=== PATIENT | female | born 1995 | race Caucasian/White ===

== ENCOUNTER 2016-06-26 17:43 | Outpatient (CLI) | payer OTHER ==
[2016-06-26 19:30] VITALS: BMI 31.6
[2016-06-26 20:02] LABS: PH,URINE 6.5 (5.0-8.0); URINE BILIRUBIN NEGATIVE (NEGATIVE); URINE BLOOD NEGATIVE (NEGATIVE); URINE GLUCOSE (UA) NEGATIVE (NEGATIVE); URINE LEUKOCYTE ESTERASE 1+ (NEGATIVE); URINE NITRITE NEGATIVE (NEGATIVE); URINE PROTEIN NEGATIVE (NEGATIVE); URINE UROBILINOGEN NORMAL (0-1 mg/dl)
[2016-06-26 20:13] LABS: URINE APPEARANCE TURBID; URINE BACTERIA 3+; URINE COLOR LIGHT YELLOW; URINE EPITHELIAL CELLS 20-30 /hpf; URINE RBC 0-2 /hpf
[2016-06-26] MEDS ORDERED: CEPHALEXIN 500 MG CAPSULE ONE (20:25)
[2016-06-26] MEDS ORDERED: CEPHALEXIN 500 MG CAPSULE PO ONE (20:25)
== END 2016-06-26 20:35 | disposition home or self-care (01) ==
LOC: FBCOUT 17:43 → FBC 17:48 → FBCOUT 20:35
PROVIDERS: ATTEND Family Medicine
DX: O26.899 Other specified pregnancy related conditions, unspecified trimester (principal); R30.0 Dysuria; Z3A.00 Weeks of gestation of pregnancy not specified

== ENCOUNTER 2016-07-01 07:35 | Inpatient (IN) | payer OTHER ==
[2016-07-01 08:03] VITALS: BMI 35.0
[2016-07-01] MEDS ORDERED: OXYTOCIN IN NS 334 ML IV PRN (09:54)
--- NOTE | 2016-07-01 10:14 | PDOC36 ---
Provider Note Subject: cc: Admission H&P HPI: 20 y.o. year old CHARLES 07/16/2016, by Last Menstrual Period at 37w6d. Presents with SROM at 0510 this am. Intermittent ctx. REVIEW OF SYSTEMS GENERAL: No fever or headache EYES: No double or blurry vision. CARDIOVASCULAR: No chest pain. RESPIRATORY: No severe shortness of breath or cough. GASTROINTESTINAL: No nausea or vomiting or right upper quadrant pain. PSYCHIATRIC: No anxiety or depression. PROBLEMS Patient Active Problem List Diagnosis Date Noted Flat nipple 06/08/2016 Anxiety 04/24/2016 Encounter for supervision of normal in third trimester 03/23/2016 Abnormal findings on screening 02/01/2016 Iron deficiency anemia during , antepartum 12/31/2014 [facility] 11/06/2014 Partner relationship problems 11/06/2014 OB HISTORY #: 1, Date: 12/27/14, Sex: Female, Weight: 3.232 kg (7 lb 2 oz), GA: 38w3d, Delivery: Vaginal, Spontaneous Delivery, Apgar1: None, Apgar5: None, Living: Yes , Comments: None #: 2, Current Dating: Dating Summary Working CHARLES: 07/16/16 set by Selina Ge on 01/29/16 based on Last Menstrual Period on 10/10/15 Based On CHARLES GA Dif Comments GA Cyc Lut BC Entered By Date Last Menstrual Period on 10/10/15 (Exact Date) 07/16/16 Working Selina Ge 01/29/16 Ultrasound on 02/27/16 07/11/16 +5d Male. Ant grade 1 placenta, no previa. Normal survey except B pelviectasis. Referred to [facility]. 20w5d Hollie Lopez MD 03/03/16 PS No past surgical history SOC HX reports that she has never smoked. She quit smokeless tobacco use about 2 years ago. She reports that she does not drink alcohol or use illicit drugs. ALL No Known Allergies MEDICATIONS Current outpatient prescriptions: doxylamine (UNISOM) 25 MG tablet, Take 1 tablet (25 mg total) by mouth nightly as needed for nausea., Disp: 60 tablet, Rfl: 1 ferrous gluconate (FERGON) 324 MG tablet, Take 1 tablet (324 mg total) by mouth daily with breakfast., Disp: 90 tablet, Rfl: 3 iron sucrose (VENOFER) 20 MG/ML injection, 200mg IV x 5 doses within 14 days Disp# 200mg RF x 4, Disp: , Rfl: Vit-Fe Fumarate-FA (PREPLUS) 27-1 MG tablet, Take 1 tablet by mouth daily., Disp: , Rfl: PHYSICAL EXAMINATION VITAL SIGNS: T 98.2 BP 126/76 P 100 Estimated body mass index is 33.74 kg/(m^2) as calculated from the following: Height as of 06/08/16: 1.625 m (5' 3.98"). Weight as of 06/08/16: 89.1 kg (196 lb 6.9 oz). Total weight gain is 11.989 kg (26 lb 6.9 oz) FHT: 130's baseline, mod mahin, + accels, no decels Kline: Intermittent SVE: /-2 GENERAL: No distress GASTROINTESTINAL: Gravid no fundal tenderness, vertex on leopolds LABS & STUDIES A+ Antibody- Rubella Immune Hep B- HIV- GC/Chlamydia- Trep- Hgb 9.7 GBS unknown Confirmed ROM with ROM+, ferning and persistent pooling and leaking of fluid. ASSESSMENT 20 y.o. year old CHARLES 07/16/2016, by Last Menstrual Period at 37w6d who presents with SROM. PLAN PROM- Not in active ctx pattern. Will observe for short while but start pitocin if not progressing into active labor. Anticpate . GBS- unknown. She has not been seen in clinic since 06/08. Will treat as unknown at this time. If ROM >18 hours start prophylaxis. FWB- cat I RH + Pain- plans on epidural when active.
[2016-07-01] MEDS ORDERED: IV START KIT ONE (10:55)
[2016-07-01] MEDS ORDERED: OXYTOCIN 10 UNITS/ML VIAL ONE (10:55)
[2016-07-01] MEDS ORDERED: LIDOCAINE 1% (PRES FREE) 30 ML VIAL ONE (10:56)
[2016-07-01] MEDS ORDERED: OXYTOCIN IN NS 500 ML IV ONE (10:56)
[2016-07-01] MEDS ORDERED: LIDOCAINE Viscous 2% 15 ML UDCUP ONE (10:56)
[2016-07-01] MEDS ORDERED: MINERAL OIL 25 ML BOT ONE (10:56)
[2016-07-01] MEDS ORDERED: PUMP TUBING ONE (10:56)
[2016-07-01] MEDS ORDERED: SODIUM CHLORIDE 0.9% FLUSH 10 ML ONE (10:56)
[2016-07-01 12:06] LABS: HEMATOCRIT 29.2 % (37.0-47.0); HEMOGLOBIN 9.1 gm/l (12.0-16.0); MEAN CELL VOLUME 80.2 fl (81.0-99.0); MEAN CORPUSCULAR HGB CONC 31.2 g/dl (33.0-37.0); RED CELL DISTRIBUTION WIDTH 18.6 % (11.5-14.5)
[2016-07-01] MEDS: LACTATED RINGERS 1,000 ML IV SCH ×4 (12:32→22:43)
[2016-07-01] MEDS: OXYTOCIN IN NS 500 ML IV PRN ×4 (12:39→16:22)
[2016-07-01] MEDS ORDERED: FENTANYL/ROPIVACAINE EPIDURAL 250 ML EP ONE (18:37)
[2016-07-01] MEDS ORDERED: EPIDURAL PUMP SET ONE (18:37)
[2016-07-01] MEDS ORDERED: NALOXONE HCL 0.4 MG/ML VIAL IV PRN (18:59)
[2016-07-01] MEDS ORDERED: EPHEDRINE SULFATE 50 MG/ML 1ML VIAL IV PRN (18:59)
[2016-07-01] MEDS ORDERED: LACTATED RINGERS 500 ML IV PRN (18:59)
[2016-07-01] MEDS ORDERED: METOCLOPRAMIDE HCL 5 MG/ML 2ML VIAL IV PRN (18:59)
[2016-07-01] MEDS ORDERED: ONDANSETRON 4 MG/2ML 2 ML VIAL IV PRN (18:59)
[2016-07-01] MEDS ORDERED: SODIUM CHLORIDE 0.9% 500 ML IV PRN (18:59)
[2016-07-01] MEDS ORDERED: NALBUPHINE HCL 20 MG/ML AMP IV PRN (18:59)
[2016-07-01] MEDS ORDERED: DIPHENHYDRAMINE HCL 50 MG/1 ML VIAL IV PRN (18:59)
--- NOTE | 2016-07-01 19:12 | PDOC36 ---
Provider Note Subject: S: feeling much pain improvement after epidural O: T 98.4 BP 113/62 P 90 CE: 4/60/-2 Ctx: q2-3 min Pit 6 FHT"s 125 baseline, mod mahin, + accels- cat I A/P PROM- Recently reached active phase I believe. Pit at 6 and continue to observe for consistent ctx pattern. Anticpate . GBS- unknown. She has not been seen in clinic since 06/08. Will treat as unknown at this time. If ROM >18 hours start prophylaxis. If she has not delievered by 11pm will initiate at that time. Reduce CE as much as possible. FWB- cat I RH + Pain- epidural in place
[2016-07-01] MEDS ORDERED: ROPIVACAINE 0.5% 30 ML VIAL ONE (19:15)
[2016-07-01] MEDS ORDERED: EPIDURAL PROCEDURE TRAY ONE (19:15)
[2016-07-01] MEDS: FENTANYL/ROPIVACAINE EPIDURAL 250 ML EP SCH (20:47)
[2016-07-01] MEDS ORDERED: PENICILLIN G POTASSIUM 5 MMU in NS 0.9% (MINI-BAG PLUS) 100 ML IV ONE (22:12)
--- NOTE | 2016-07-01 22:12 | PDOC36 ---
Provider Note Subject: S: Pain well controlled. O: T 97.8 BP 107/64 P 90 CE: 6/80/-1 Ctx: q2-3 min Pit 6 FHT"s 120 baseline, mod mahin, + accels- cat I A/P PROM- Making good progress. Pit at 6 and continue to observe for consistent ctx pattern. Anticpate . GBS- unknown. Now at border of 18 hours. Will start PCN prophylaxis in unknown setting. Forebag ruptured just now. FWB- cat I RH + Pain- epidural in place
[2016-07-01] MEDS ORDERED: LACTATED RINGERS 1,000 ML IV SCH (22:15)
[2016-07-01] MEDS ORDERED: NS 0.9% (MINI-BAG PLUS) 100 ML IV ONE (22:39)
[2016-07-01] MEDS ORDERED: PENICILLIN G POTASSIUM 5 MMU VIAL ONE (22:39)
[2016-07-02] MEDS ORDERED: MAGNESIUM HYDROXIDE 30 ML UDCUP PO PRN (00:42)
[2016-07-02] MEDS ORDERED: BENZOCAINE/MENTHOL 60 APPLIC/BOT TP PRN (00:42)
[2016-07-02] MEDS ORDERED: LANOLIN 50 APPLIC/7G TUBE TP PRN (00:42)
[2016-07-02] MEDS ORDERED: DOCUSATE SODIUM 100 MG CAPSULE PO PRN (00:42)
[2016-07-02] MEDS ORDERED: HYDROCODONE/ACETAMINOPHEN 5/325MG TABLET PO PRN (00:42)
--- NOTE | 2016-07-02 00:45 | PCMDEL ---
Delivery Note - Labor 1st stage (hr/min):: 6 hours 2nd stage (hr/min):: 14 min 3rd stage (hr/min):: 5 min Total (hr/min):: 6 hours Pushed (hr/min):: 14 min - Delivery Delivery (Date): 07/02/16 Delivery (Time): 00:26 Infant Gender: Male Presentation: Cephalic Position: OA Umbilical Cord: 3 Vessel Delayed Cord Clamping:: 2-3 min 1 Minute Total: 9 5 Minute Total: 10 Placenta:: intact EBL:: 500 Comments:: Presented to [facility] with SROM and PROM. Patient observed till 8 hours post SROM. Pitocin augmentation started and progressed to complete. PCN initiated after 18 hours of ROM. Patient pushed effectively to deliver via without any complications. Vigorous infant. FM remained category 1 throughout. Delayed cord clamping x 2 min. Active thrid stage management with pit and fundal massage.
[2016-07-02] MEDS: IBUPROFEN 800 MG TABLET PO PRN ×3 (01:20→21:23)
[2016-07-02] MEDS ORDERED: PENICILLIN G 3 MIL UNIT PREMIX 3 MMU in Premix (D5W) 50 ml 1 EACH IV SCH (02:00)
[2016-07-02] MEDS: LACTATED RINGERS 1,000 ML IV SCH (03:50)
[2016-07-02] MEDS: FENTANYL/ROPIVACAINE EPIDURAL 250 ML EP SCH (06:12)
[2016-07-03 06:29] LABS: HEMATOCRIT 30.7 % (37.0-47.0); HEMOGLOBIN 9.3 gm/l (12.0-16.0)
[2016-07-03] MEDS: IBUPROFEN 800 MG TABLET PO PRN (08:17)
[2016-07-03 08:32] VITALS: BP 114/68
--- NOTE | 2016-07-03 09:41 | PDOC39B ---
Hospital Course: ADMIT DATE: 07/01/16 DISCHARGE DATE: 07/03/16 ADMISSION DIAGNOSES: PROM IUP at 37 6 7/ weeks GBS unknown PROCEDURES: HISTORY OF PRESENT ILLNESS: 20 year old G2 T1 L1 at 38 weeks 0 days presenting with PROM. HOSPITAL COURSE: The patient was observed for short duration and then started on pitocin augmentation. She progressed slowly and eventually was started on PCN for GBS unknown status. She delivered via without complications. her post course was unremarkable. By day of discharge the patient is ambulating, eating, voiding, and passing flatus without difficulty. Pain is controlled and lochia is appropriate. She is breast feeding and pumping with assistance. - Physical Exam Vital Signs: Temp Pulse Resp BP Pulse Ox 98.2 F 113 18 114/68 07/03/16 08:00 07/03/16 08:00 07/03/16 08:00 07/03/16 08:00 General: Afebrile, No Acute Distress Neurological: Alert, Oriented x 4 Lungs: Clear to Auscultation Bilaterally Cardiovascular: Regular Rate and Rhythm Fundus: Firm, Midline Extremities: Full ROM, No Edema Skin: Normal Color, Warm, Dry, Intact, No Rash - Discharge Diagnosis (1) Normal vaginal delivery Status: AcuteAssessment/Plan: Healthy exam. Routine PP care. Doing well. Well supported by with game plan. - Discharge Plan Condition: Good Disposition: Home Prescriptions: Docusate Sodium [COLACE 100 MG CAPSULE (SHF)] 100 mg PO DAILY PRN #30 PRN Reason: Comfort Ibuprofen [IBUPROFEN 800 MG TABLET (SHF)] 800 mg PO Q6H PRN #60 PRN Reason: Pain (Mild) Lanolin [LANOLIN 7 G TUBE (SHF)] 1 applic TP PRN PRN #10 PRN Reason: Sore Nipples Follow-Up: Hollie Lopez MD [Primary Care Provider] - In 6 weeks
== END 2016-07-03 13:24 | disposition home or self-care (01) | DRG 775 ==
LOC: FBCOUT 07:35 → FBC 07:36 → FBCOUT 10:38 → FBC 10:39
PROVIDERS: ADMIT Family Medicine; ATTEND Family Medicine
PROC: 10E0XZZ Delivery of Products of Conception, External Approach (ICD-10-PCS; principal; 2016-07-02)
DX: O42.913 Preterm premature rupture of membranes, unspecified as to length of time between rupture and onset of labor, third trimester (principal); O99.344 Other mental disorders complicating childbirth; F41.8 Other specified anxiety disorders; Z87.891 Personal history of nicotine dependence; Z3A.37 37 weeks gestation of pregnancy; Z37.0 Single live birth